=== PATIENT | male | born 2005 | race Asian ===

== ENCOUNTER 2025-05-02 21:51 | Emergency (ER) | payer MEDICAID ==
[~2025-05-02] VITALS: Ht 172.7 cm; Wt 70.9 kg
[2025-05-03 00:30] VITALS: BP 116/65; PULSE 71; RESP 18; TEMP 97.3; O2SAT 100
[2025-05-03] MEDS: BACITRACIN 0.9 GM PACKET OINTMENT TP ONE (00:45)
== END 2025-05-03 01:24 | disposition home or self-care (01) ==
LOC: EMS 21:56
DX: S61.412A Laceration without foreign body of left hand, initial encounter (principal); S61.411A Laceration without foreign body of right hand, initial encounter; S60.512A Abrasion of left hand, initial encounter; S60.511A Abrasion of right hand, initial encounter; W45.8XXA Other foreign body or object entering through skin, initial encounter; Y93.89 Activity, other specified; Y92.89 Other specified places as the place of occurrence of the external cause; Y99.9 Unspecified external cause status
CPT/HCPCS: 99282; Z7502; Z7610